=== PATIENT | female | born 1975 | race Caucasian/White ===

== ENCOUNTER 2016-11-23 16:38 | Emergency (ER) | payer SELFPAY ==
[~2016-11-23] VITALS: Ht 160 cm; Wt 63.5 kg
[2016-11-23 16:45] VITALS: BP 118/72
[2016-11-23] MEDS ORDERED: DIPHENHYDRAMINE 50 MG/ML, 1ML IM ONE (17:30)
[2016-11-23] MEDS ORDERED: FAMOTIDINE 20 MG TABLET PO ONE (17:30)
== END 2016-11-23 18:02 | disposition home or self-care (01) ==
LOC: ED 17:56
DX: S70.362A Insect bite (nonvenomous), left thigh, initial encounter (principal); S80.862A Insect bite (nonvenomous), left lower leg, initial encounter; L25.9 Unspecified contact dermatitis, unspecified cause; W57.XXXA Bitten or stung by nonvenomous insect and other nonvenomous arthropods, initial encounter; Y93.89 Activity, other specified; Y92.89 Other specified places as the place of occurrence of the external cause; Y99.8 Other external cause status
CPT/HCPCS: 99283